=== PATIENT | male | born 1975 | race American Indian/Alaskan Native ===

== ENCOUNTER 2018-11-02 23:33 | Observation (INO) | payer OTHER, SELFPAY ==
[~2018-11-02] VITALS: Ht 185.4 cm; Wt 88.6 kg
[2018-11-03] VITALS (10 sets, daily range): BP systolic 128–157; BP diastolic 70–89
[2018-11-03] MEDS ORDERED: PIPERACILLIN/TAZOBACTAM SOD 3.375 GM in D5W MINI-BAG PLUS 50 ML IV ONE (01:15)
[2018-11-03] MEDS ORDERED: ADACEL/BOOSTRIX VACCINE (DIPHTH/PERTUSS/ACELL/TETANUS)0.5ML SYR (90715) IM ONE (01:15)
[2018-11-03] MEDS ORDERED: ZOSYN 3.375 GM VIAL (J2543) As Ordered ONE (02:17)
[2018-11-03] MEDS ORDERED: BUPIVACAINE HCL 0.5% 30 ML VIAL As Ordered ONE (02:18)
[2018-11-03] MEDS ORDERED: ceFAZolin 1GM INJ (J0690 PER 500MG) As Ordered ONE ×2 (02:18→03:51)
[2018-11-03] MEDS ORDERED: LIDOCAINE 1% SDV INJ 30 ML VIAL As Ordered ONE (02:18)
[2018-11-03] MEDS ORDERED: LIDOCAINE 2% INJ 100 MG/5 ML SDV (FOR ANES.) As Ordered ONE (03:41)
[2018-11-03] MEDS ORDERED: PROPOFOL 200 MG/20 ML VIAL As Ordered ONE (03:41)
[2018-11-03] MEDS ORDERED: SUCCINYLCHOLINE 100 MG/5 ML SYRINGE (J0330) As Ordered ONE (03:41)
[2018-11-03] MEDS ORDERED: fentaNYL 100 MCG/2 ML INJECTION (J3010) As Ordered ONE (03:41)
[2018-11-03] MEDS ORDERED: MIDAZOLAM INJ 2 MG/2 ML VIAL (J2250) As Ordered ONE (03:41)
[2018-11-03] MEDS ORDERED: PHENYLephrine HCL 500 MCG/5 ML (100MCG/ML) SYRINGE (J2370) As Ordered ONE (03:42)
[2018-11-03] MEDS ORDERED: VASOPRESSIN INJ 20 UNITS/ML VIAL As Ordered ONE (03:57)
[2018-11-03] MEDS ORDERED: dexameTHASONE 4 MG/ML 1ML VIAL (J1100) As Ordered ONE (03:58)
[2018-11-03] MEDS ORDERED: ePHEDrine SULFATE 25 MG/5 ML(5MG/ML) SYRINGE As Ordered ONE (04:08)
[2018-11-03] MEDS ORDERED: ONDANSETRON 4MG/2ML VIAL (J2405) As Ordered ONE (04:08)
[2018-11-03] MEDS ORDERED: fentaNYL 100 MCG/2 ML INJECTION (J3010) IV PRN (06:15)
[2018-11-03] MEDS ORDERED: METOCLOPRAMIDE INJ 10MG/2ML VIAL (J2765) IV PRN (06:15)
[2018-11-03] MEDS ORDERED: ONDANSETRON 4MG/2ML VIAL (J2405) IV PRN ×2 (06:15→06:30)
[2018-11-03] MEDS ORDERED: oxyCODONE 5MG TAB PO PRN (06:15)
[2018-11-03] MEDS ORDERED: PROMETHAZINE INJ 25 MG/ML VIAL (J2550) IV PRN (06:15)
[2018-11-03] MEDS ORDERED: PERCOCET 5MG/325MG TAB PO PRN ×3 (06:15→06:30)
[2018-11-03] MEDS ORDERED: LR 1,000 ML IV SCH (06:15)
--- NOTE | 2018-11-03 07:37 | REP ---
Right tibia-fibula four views: There is soft tissue injury. There is no fracture or dislocation. There is no radiopaque foreign body. Mineralization and joint spaces are unremarkable. Impression: Soft tissue injury. No fracture or dislocation or foreign body. Electronically Signed by Jg Barnard MD 11/03/2018 07:29 A
[2018-11-03] MEDS ORDERED: NAPROXEN 250 MG TAB PO SCH (09:00)
[2018-11-03] MEDS: PIPERACILLIN/TAZOBACTAM SOD 3.375 GM in D5W MINI-BAG PLUS 50 ML IV SCH ×3 (09:14→22:28)
[2018-11-03] MEDS: NAPROXEN 250 MG TAB PO SCH ×2 (10:02→21:10)
--- NOTE | 2018-11-03 13:32 | RO ---
DATE OF PROCEDURE: 11/03/2018 PREOPERATIVE DIAGNOSIS: Multiple dog bite wounds to the right upper extremity and bilateral lower extremities. POSTOPERATIVE DIAGNOSIS: Multiple dog bite wounds to the right upper extremity and bilateral lower extremities. PROCEDURE PERFORMED: Right upper extremity and bilateral lower extremity irrigation and debridement with wound closure. SURGEON: Wilfredo Taveras MD MANAGER GAME: None. ANESTHESIA PROVIDER: Dr. Lam ANESTHESIA GIVEN: General endotracheal anesthesia. ESTIMATED BLOOD LOSS: 50 mL. ANTIBIOTICS: 2 grams Ancef given within 1 hour of the procedure and one dose of Zosyn at the end of the procedure. MATERIAL SENT TO THE LAB: None. COMPLICATIONS: None. INDICATIONS FOR PROCEDURE: Gary Duarte is a 43-year-old male who sustained multiple dog bite wounds by his own dog to the right upper extremity and bilateral lower extremities. He had a 3 cm laceration to the medial aspect of the right distal brachium in addition to a 12 cm large laceration of the anterior compartment of the right leg with exposed anterior compartment musculature and damaged muscle tissue, in addition to multiple punctate wounds on the lateral aspect of the leg on the right side and multiple punctate bite wounds on the medial aspect of the left thigh. There was no evidence of fracture. Given the extensive nature of his injuries, it was recommended to undergo formal irrigation and debridement in the operating room. Preoperative exam demonstrated no evidence of nerve or tendon injury. I counseled the patient regarding the risks, benefits, indications, and alternatives of operative versus nonoperative management to include the significant infection risk given the nature of his injuries and the patient provided written informed consent for right upper extremity and bilateral lower extremity irrigation and debridement, possible wound closure versus negative pressure wound dressing placement, and other procedures as indicated based on intraoperative findings. I counseled the patient that I will be his operating surgeon and his follow-up care will be conducted by [facility]. He expressed understanding of this arrangement and elected to proceed. INTRAOPERATIVE FINDINGS: On the right upper extremity there was a 3 cm oblique laceration on the medial distal aspect of the brachium. There was some evidence of injury to the brachialis muscle with also minor injury to the proximal aspect of the flexor pronator mass. There was no evidence of nerve or arterial injury. On the right lower extremity there was a 12 cm long by a 5 cm wide wound on the anterior compartment of the leg with a large amount of nonviable injured anterior compartment musculature. There is no evidence of tendon injury in the anterior compartment of the leg. There were also multiple punctate wounds on the lateral aspect of the leg and the left medial thigh. There are multiple punctate wounds on the medial aspect of the thigh with multiple abrasions. There was no evidence of nonviable muscle, neurologic or tendon injury of the left medial thigh. DESCRIPTION OF OPERATION: The patient was identified in the preop holding area where the surgical sites were marked. He was then brought to the operating room where he was placed under general endotracheal anesthesia. His right upper extremity and bilateral lower extremities were prepped and draped in the usual sterile fashion. A final time out was performed. I began with the right upper extremity incision and explored the wound and found no evidence of tendon or neurovascular injury. I then thoroughly irrigated the wound with 3 liters of normal saline and loosely approximated the wound with interrupted #3-0 nylon sutures. There were two or three small less than 1 cm punctate wounds on the distal aspect of the forearm as well which were left to heal secondarily. I then proceeded to the left thigh wounds which were also explored and there was found to be no evidence of neurovascular injury or muscle damage. I then thoroughly irrigated those wounds with 3 liters of normal saline and loosely approximated a few of the larger wounds with interrupted #3-0 nylon suture. I then turned attention to the right lower extremity where there was a large amount of a nonviable anterior compartment musculature which was sharply debrided. The remaining muscle tissue was viable with healthy bleeding and was contractile. I also performed limited debridement of some of the skin edges followed by thorough irrigation of the wounds in addition to irrigation of the punctate wounds on the lateral aspect of the leg. After debridement of the muscle tissue, the anterior tibial wound was able to be closed primarily. Some of the larger wounds on the lateral aspect of leg were also loosely approximated with interrupted #3-0 nylon suture. At this point sterile dressings were applied to all the wounds and this ended the procedure. I was present and scrubbed in for all portions of the case. POSTOPERATIVE PLAN: The patient will be admitted for 24 hours of IV antibiotics. He will be weightbearing as tolerated to bilateral lower extremities and right upper extremity and will be discharged home on oral antibiotics after 24 hours of IV antibiotics have been completed. SANJUANITA
[2018-11-03] MEDS: PERCOCET 5MG/325MG TAB PO PRN ×2 (15:51→22:30)
[2018-11-04 06:00] VITALS: BP 132/81
[2018-11-04] MEDS ORDERED: PERC5TAB12 PO (06:29)
[2018-11-04] MEDS ORDERED: NAPR250T4 PO (06:29)
[2018-11-04] MEDS: NAPROXEN 250 MG TAB PO SCH (08:33)
[2018-11-04] MEDS: PERCOCET 5MG/325MG TAB PO PRN (08:34)
[2018-11-04 10:00] VITALS: BP 118/64
== END 2018-11-04 11:42 | disposition home or self-care (01) ==
LOC: M ED 23:33 → M SDC 11-03 02:07 → M MSPAV 11-03 05:45 → M SDC 11-03 07:14 → M MSPAV 11-03 07:15
PROVIDERS: ADMIT Orthopaedic Surgery; ATTEND Orthopaedic Surgery
DX: S41.151A Open bite of right upper arm, initial encounter (principal); S81.851A Open bite, right lower leg, initial encounter; S71.152A Open bite, left thigh, initial encounter; W54.0XXA Bitten by dog, initial encounter; Y92.009 Unspecified place in unspecified non-institutional (private) residence as the place of occurrence of the external cause; Y99.9 Unspecified external cause status; Y93.9 Activity, unspecified
CPT/HCPCS: 11042; 12002; 13121; 13122; 73590; 90471; 90715; 96365; 96366; 96367; 96368; 96375; 97116; 99284; G0378; J0330; J0690; J1100; J2250; J2370; J2405; J2543; J3010

== ENCOUNTER → 2018-11-14 | Outpatient (REF) | payer OTHER ==
[~2018-11-14] MED LIST: NAPR250T4 PO; PERC5TAB12 PO
== END ==
LOC: M LAB REF 15:32
PROVIDERS: ATTEND Orthopaedic Surgery
DX: S81.801D Unspecified open wound, right lower leg, subsequent encounter (principal)

== ENCOUNTER → 2019-01-05 | Outpatient (REF) | payer OTHER | LOC: M LAB REF 10:06 | PROVIDERS: ATTEND Physician Assistant | DX: Z11.2 Encounter for screening for other bacterial diseases (principal) ==